=== PATIENT | female | born 1970 | race Caucasian/White ===

== ENCOUNTER 2021-01-30 03:36 | Emergency (ER) | payer BC ==
[2021-01-30] MEDS ORDERED: Ketorolac 30 MG/ML SDV IM ONE (03:58)
[2021-01-30] MEDS ORDERED: Diazepam 5 MG Tab PO ONE (03:59)
--- NOTE | 2021-01-30 04:11 | EDM.PDOC ---
ED HPI GENERAL MEDICAL PROBLEM - General Chief Complaint: Back Pain or Injury Stated Complaint: back pain Time Seen by Provider: 01/30/21 03:49 Source of Information: Reports: Patient - History of Present Illness INITIAL COMMENTS - FREE TEXT/NARRATIVE: Dariana is a 50 y/o female who presents to the ER with a lower back spasm. 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 She then had sharp lower back pain and it seems to shoot a bit more to the right. She did take some ibuprofen last night, but nothing further. She denies any previous injury. - Related Data Home Meds: Home Meds Cyclobenzaprine [Flexeril] 10 mg PO TID #15 tab 01/30/21 [Rx] Review of Systems - Review of Systems Review Of Systems: See Below Constitutional: Reports: No Symptoms Eyes: Reports: No Symptoms Ears: Reports: No Symptoms Nose: Reports: No Symptoms Mouth/Throat: Reports: No Symptoms Respiratory: Reports: No Symptoms Cardiovascular: Reports: No Symptoms GI/Abdominal: Reports: No Symptoms Genitourinary: Reports: No Symptoms Musculoskeletal: Reports: Back Pain Skin: Reports: No Symptoms Neurological: Reports: No Symptoms Psychiatric: Reports: No Symptoms ED EXAM, GENERAL - Physical Exam Exam: See Below Exam Limited By: No Limitations General Appearance: Alert, WD/WN, No Apparent Distress (Adult female) Nose: Normal Inspection Head: Atraumatic, Normocephalic Neck: Normal Inspection Respiratory/Chest: No Respiratory Distress Cardiovascular: Normal Peripheral Pulses, Regular Rate, Rhythm GI/Abdominal: Soft (Female) Exam: Deferred Rectal (Female) Exam: Deferred Back Exam: Normal Inspection, Muscle Spasm, Other (bilateral lower tennderness noted with palpation, right >left but now specific muscle spasm appreciated). No: Vertebral Tenderness Extremities: Normal Inspection, Normal Range of Motion Neurological: Alert, Oriented, CN II-XII Intact, Normal Cognition, No Motor/Sensory Deficits Psychiatric: Normal Affect Skin Exam: Warm, Dry, Intact, Normal Color Course - Vital Signs Text/Narrative:: 0349 The patient was seen by the [facility]. She was given Toradol 30mg IM and Valium 10mg po for her lower back spasm. 0445 Patient reported relief of her pain. She was ready to go home to rest, she was given discharge instructions and sent with a starter pack of Cyclobenzaprine. She left the ER in stable condition. - Orders/Labs/Meds Meds: Medications Discontinued Medications Generic Name Dose Route Start Last Admin Trade Name Luis Alberto PRN Reason Stop Dose Admin Diazepam 10 mg 01/30/21 03:59 Diazepam 5 Mg Tab PO 01/30/21 04:00 ONETIME ONE Ketorolac Tromethamine 30 mg 01/30/21 03:58 Ketorolac 30 Mg/Ml Sdv IM 01/30/21 03:59 ONETIME ONE Departure - Departure Time of Disposition: 04:46 Disposition: Home, Self-Care 01 Condition: Good Clinical Impression: Acute bilateral low back pain with sciatica Qualifiers: Sciatica laterality: sciatica of right side Qualified Code(s): M54.41 - Lumbago with sciatica, right side - Discharge Information Prescriptions: Cyclobenzaprine [Flexeril] 10 mg PO TID #15 tab Instructions: Muscle Strain, [id number], Pain Medicine Instructions, [id number] Forms: ED Department Discharge - Assessment/Plan Assessment:: 1)Acute Low Marce Pain with Sciatica Plan: -Ibuprofen 200mg 3 tabs orally every 6 hours x 5-7 days then every 6-8 hours as needed (Use over the counter meds) -Cyclobenzaprine 10 mg orally every 8 hours as needed for muscle spasms #15 (Rx) -Ice or heat applied to the area as needed -Rest, Increase activity as able -Follow up with your Primary Care Provider to arrange further diagnostic testing if the pain persists -Return to the ER if any other concerns
[2021-01-30] MEDS ORDERED: Take Home: Cyclobenzaprine 10 MG Tab, 4 Tab Pack PO ONE (04:22)
== END 2021-01-30 04:55 | disposition home or self-care (01) ==
LOC: VM.ED 03:36
DX: M54.41 Lumbago with sciatica, right side (principal); M54.42 Lumbago with sciatica, left side
CPT/HCPCS: 96372; 99283; A9270-GY; J1885